=== PATIENT | male | born 1970 | race Hispanic/Latino ===

== ENCOUNTER → 2017-04-25 | Outpatient (CLI) | payer OTHER ==
[~2017-04-25] MED LIST: AGM875T PO; BUTA1TAB55 PO; CYCL10TA9 PO; PRD50T PO; TRAM50TA2 PO
--- NOTE | 2017-04-25 12:09 | Diagnostic Imaging Report ---
PROCEDURE: CT head without contrast. INDICATION: Head injury with pain Comparison is made to study of 03/03/2013. CT HEAD: Multiple contiguous axial CT images of the head were obtained. FINDINGS: Ventricles and sulci are within normal limits for size. There is no intracranial hemorrhage identified. There is no abnormal mass effect or shift of midline structures. IMPRESSION: Unremarkable CT of the head. Dictated by: Dictated on workstation # [id number]
== END ==
LOC: RAD 11:39
PROVIDERS: ATTEND Nurse Practitioner Family
DX: S06.0X0A Concussion without loss of consciousness, initial encounter (principal); X58.XXXA Exposure to other specified factors, initial encounter; Y99.8 Other external cause status
CPT/HCPCS: 70450

== ENCOUNTER → 2018-09-14 | Emergency (ER) | payer OTHER | LOC: ER 14:28 ==

== ENCOUNTER 2019-01-16 14:06 | Emergency (ER) | payer OTHER ==
[~2019-01-16] VITALS: Ht 165.1 cm; Wt 74.8 kg
[~2019-01-16 14:06] MED LIST changes: +PRD20T PO
--- OUTSIDE RECORDS SUMMARY | 2019-01-16 14:11 | XMS REPORT | Continuity of Care Document ---
Author Organization Unknown Address Unknown Allergies Active Description Code Type Severity Reaction Onset Reported/Identified Relationship to Patient Clinical Status Yes OTC PAIN MEDICATIONS OTC PAIN MEDICATIONS Mild N/A 03/30/2009 Yes acetaminophen [id number] Drug Allergy Severe EDEMA 09/14/2018 Medications There is no data. Problems Date Dx Coded Attending Type Code Diagnosis Diagnosed By 03/04/2013 EDUARDO ZHANG, ELSY Benítez Ot 784.0 HEADACHE 11/22/2017 ORTIZ MARTINEZ APRN Ot S06.0X0A CONCUSSION WITHOUT LOSS OF CONSCIOUSNESS 11/22/2017 ORTIZ MARTINEZ APRN Ot X58.XXXA EXPOSURE TO OTHER SPECIFIED FACTORS, INI 11/22/2017 ORTIZ MARTINEZ CHRONIC CARE NURSE Ot Y99.8 OTHER EXTERNAL CAUSE STATUS 11/22/2017 ORTIZ MARTINEZ CHRONIC CARE NURSE Ot S06.0X0A CONCUSSION WITHOUT LOSS OF CONSCIOUSNESS 11/22/2017 ORTIZ MARTINEZ APRN Ot X58.XXXA EXPOSURE TO OTHER SPECIFIED FACTORS, INI 11/22/2017 ORTIZ MARTINEZ CHRONIC CARE NURSE Ot Y99.8 OTHER EXTERNAL CAUSE STATUS 09/14/2018 ORTIZ MARTINEZ APRN Ot S06.0X0A CONCUSSION WITHOUT LOSS OF CONSCIOUSNESS 09/14/2018 ORTIZ MARTINEZ APRN Ot X58.XXXA EXPOSURE TO OTHER SPECIFIED FACTORS, INI 09/14/2018 ORTIZ MARTINEZ CHRONIC CARE NURSE Ot Y99.8 OTHER EXTERNAL CAUSE STATUS 09/14/2018 MELY KAMARA Ot G89.28 OTHER CHRONIC POSTPROCEDURAL PAIN 09/14/2018 MELY KAMARA Ot M54.6 PAIN IN THORACIC SPINE 09/14/2018 MELY KAMARA Ot Z79.52 SANDSTONE SPLITTER (CURRENT) USE OF SYSTEMIC STER 09/14/2018 MELY KAMARA Ot Z88.6 ALLERGY STATUS TO ANALGESIC AGENT STATUS 09/14/2018 ORTIZ MARTINEZ APRN Ot S06.0X0A CONCUSSION WITHOUT LOSS OF CONSCIOUSNESS 09/14/2018 ORTIZ MARTINEZ APRN Ot X58.XXXA EXPOSURE TO OTHER SPECIFIED FACTORS, INI 09/14/2018 JUAN ORTIZ Child APRN Ot Y99.8 OTHER EXTERNAL CAUSE STATUS 09/16/2018 MELY KAMARA Ot G89.28 OTHER CHRONIC POSTPROCEDURAL PAIN 09/16/2018 MELY KAMARA Ot M54.6 PAIN IN THORACIC SPINE 09/16/2018 BERNSPARKLE CABRERAIS Ot Z79.52 HALF-WAY (CURRENT) USE OF SYSTEMIC STER 09/16/2018 SPARKLE KAMARAIS Ot Z88.6 ALLERGY STATUS TO ANALGESIC AGENT STATUS 09/21/2018 BERNSPARKLE CABRERAIS Ot G89.28 OTHER CHRONIC POSTPROCEDURAL PAIN 09/21/2018 BERNOTMELY Ot M54.6 PAIN IN THORACIC SPINE 09/21/2018 BERNOTSPARKLEIS Ot Z79.52 SANDSTONE SPLITTER (CURRENT) USE OF SYSTEMIC STER 09/21/2018 BERNSPARKLE CABRERAIS Ot Z88.6 ALLERGY STATUS TO ANALGESIC AGENT STATUS Procedures There is no data. Results There is no data. Encounters ACCT No. Visit Date/Time Discharge Status Pt. Type Provider Facility Loc./Unit Complaint [id number] 09/14/2018 14:28:00 09/14/2018 15:18:00 DIS Emergency ASAD MELY [facility] ER L SIDE NUMBNESS/BACK PAIN [id number] 04/25/2017 11:39:00 04/25/2017 23:59:59 CLS Outpatient ORTIZ MARTINEZ APRN [facility] RAD CONCUSSION, HEAD TRAUMA [id number] 03/03/2013 22:52:00 03/04/2013 00:02:00 DIS Emergency ELSY CLARK MD [facility] ER HEADACHE,VOMITING
[2019-01-16] MEDS ORDERED: morphine INJ 10 MG/ML 1ML (SYR OR VIAL) IM STA (14:26)
[2019-01-16] MEDS ORDERED: ONDANSETRON 4 MG (ZOFRAN) ORAL DISSOLVE TAB SL ONE (14:30)
[2019-01-16] MEDS ORDERED: CYCLOBENZAPRINE 10 MG (FLEXERIL) TAB PO ONE (14:30)
[2019-01-16] MEDS ORDERED: PRD20T PO (14:36)
[2019-01-16] MEDS ORDERED: CYCL10TA9 PO (14:36)
[2019-01-16] MEDS ORDERED: OXYC-473 PO (14:36)
--- NOTE | 2019-01-16 14:41 | ED Back Pain ---
General Chief Complaint: Back Problems Stated Complaint: BACK PAIN Nursing Triage Note: pt states 1.5 years ago he had a 400 pound frame fall onto his back, states he comes to ED today because he can not take the pain anymore, denies being prescribed and pain medication but only anti-imflammatories Nursing Sepsis Screen: No Definite Risk Source of Information: Patient Exam Limitations: No Limitations History of Present Illness Date Seen by Provider: January 16, 2019 Time Seen by Provider: 14:14 Initial Comments This 48-year-old gentleman presents to the emergency room with complaints of exacerbation of chronic neck and back pain. He has pain related to a workplace injury about 18 months ago. He reports a 400 pound metal frame loaded with meat fell and struck him on the back. Since then he has had weakness of the left upper and lower extremities. That weakness persists and is perhaps a little worse in the arm today. He has had some long-standing problems with dribbling small amounts of urine. He also had urinated some in his pants a few nights ago. He otherwise denies any bowel or bladder dysfunction. He states he cannot take bbbd-mnd-mqujwqj medications and that both Tylenol and ibuprofen cause swelling. He can take aspirin. He reports being assessed by a clinical appeals specialist at [address] MRI of the spine was performed and he reports there were 7 bulging disks. He states the surgeon told him no interventions could be performed to help him. Therapy was recommended. He is not presently seeing a primary care provider and nobody is managing his chronic pain. He states the pain worsened about 2 or 3 days ago and he cannot tolerate it anymore. Patient states that his pain is so intense that it makes him dizzy and nauseated. Allergies and Home Medications Allergies Coded Allergies: acetaminophen (Verified Allergy, Severe, EDEMA, 09/14/18) ibuprofen (Verified Allergy, Unknown, 01/16/19) Swelling Home Medications Butalb/Acetaminophen/Caffeine 1 Each Tablet, 1 EACH PO Q4HR PRN Prescribed by: ELSY CLARK on 03/03/13 2352 Cyclobenzaprine HCl 10 Mg Tablet, 10 MG PO Q8H PRN for SPASMS Prescribed by: MELY KAMARA on 09/14/18 1512 Cyclobenzaprine HCl 10 Mg Tablet, 10 MG PO Q8H PRN for SPASMS Prescribed by: BRIJESH ORTEGA on 01/16/19 1436 Oxycodone HCl 5 Mg Tablet, 5 MG PO Q6H PRN for PAIN-MODERATE TO SEVERE Prescribed by: BRIJESH ORTEGA on 01/16/19 1436 Prednisone 20 Mg Tab, 40 MG PO DAILY Prescribed by: MELY KAMARA on 09/14/18 1512 Prednisone 20 Mg Tab, 40 MG PO DAILY Prescribed by: BRIJESH ORTEGA on 01/16/19 1436 Patient Home Medication List Home Medication List Reviewed: Yes Review of Systems Constitutional: no symptoms reported EENTM: no symptoms reported Respiratory: no symptoms reported Cardiovascular: no symptoms reported Gastrointestinal: no symptoms reported Genitourinary: no symptoms reported Musculoskeletal: see HPI Skin: no symptoms reported Psychiatric/Neurological: See HPI Past Luafaad-Biioox-Cpbrjy Hx Past Med/Social Hx: Reviewed and Corrections made Patient Social History Alcohol Use: Denies Use Recreational Drug Use: No Recent Foreign Travel: No Contact w/Someone Who Travel: No Recent Infectious Disease Expo: No Seasonal Allergies Seasonal Allergies: No Past Medical History Surgeries: No Respiratory: No Cardiac: No Neurological: Yes (chronic left-sided upper and lower extremity weakness.) Reproductive Disorders: No Sexually Transmitted Disease: No Genitourinary: No Gastrointestinal: No Musculoskeletal: Yes Chronic Back Pain Endocrine: No HEENT: No Cancer: No Psychosocial: No Integumentary: No Blood Disorders: No Physical Exam Vital Signs Vital Signs - First Documented 01/16/19 01/16/19 14:16 15:02 Temp 97.6 Pulse 81 Resp 20 B/P (MAP) 161/128 (139) Pulse Ox 99 O2 Delivery Room Air Capillary Refill : Less Than 3 Seconds Height, Weight, BMI Height: 5'5.00" Weight: 165lbs. oz. 74.264798ho; BMI Method:Stated General Appearance: WD/WN, Mild Distress HEENT: PERRL/EOMI, Normal ENT Inspection Neck: Normal Inspection Cardiovascular: Regular Rate, Rhythm, No Edema, No Murmur Respiratory: Lungs Clear, Normal Breath Sounds, No Accessory Muscle Use, No Respiratory Distress Gastrointestinal: Non Tender, Soft Back: Normal Inspection, Vertebral Tenderness (throughout the spine, more intense over the lumbar spine), Other (paraspinous muscles are very tense and tender) Extremity: Normal Inspection, No Pedal Edema Neurologic/Psychiatric: Alert, Oriented x3, Normal Mood/Affect, menhaden vessel pilot II-XII Norm as Tested, Motor Weakness (4/5 strength in the left upper and lower extremity) Skin: Normal Color, Warm/Dry Progress/Results/Core Measures Results/Orders My Orders Orders - BRIJESH CABRERA MD Morphine Injection (Morphine Injection (01/16/19 14:26) Cyclobenzaprine Tablet (Flexeril Tablet) (01/16/19 14:30) Ondansetron Oral Dissolve Tab (Zofran (01/16/19 14:30) Medications Given in ED Current Medications Medications Dose Ordered Sig/Suzie Route Start Time Stop Time Status Last Admin Dose Admin Cyclobenzaprine HCl 10 mg ONCE ONCE PO 01/16/19 14:30 01/16/19 14:31 DC 01/16/19 14:33 10 MG Ondansetron HCl 8 mg ONCE ONCE SL 01/16/19 14:30 01/16/19 14:31 DC 01/16/19 14:33 8 MG Vital Signs/I&O 01/16/19 01/16/19 14:16 15:02 Temp 97.6 97.8 Pulse 81 77 Resp 20 20 B/P (MAP) 161/128 (139) 145/101 (116) Pulse Ox 99 O2 Delivery Room Air Blood Pressure Mean: 139 Progress Progress Note : Progress Note Patient received an injection of morphine. He was given Zofran for nausea followed by cyclobenzaprine. I strongly advised him to follow-up with a primary care provider to manage his pain and to notify the clinical appeals specialist that his symptoms have worsened in intensity. Return precautions were discussed. See discharge instructions. A note was provided for several days off of work to allow him time to connect with a primary care provider. Departure Impression Primary Impression: Exacerbation of chronic back pain Additional Impression: Acute left-sided weakness Disposition: 01 HOME, SELF-CARE Condition: Improved Departure-Patient Inst. Decision time for Depature: 14:37 Referrals: NO,LOCAL PHYSICIAN (PCP/Family) Primary Care Physician Patient Instructions: MANAGING YOUR CHRONIC PAIN Add. Discharge Instructions: Follow-up with a primary care provider soon as possible to help manage your chronic pain. Also follow up with the clinical appeals specialist to assess your worsening of pain. Use your medications as prescribed. Please note the cyclobenzaprine and oxycodone may make you sleepy. Do not drive or operate machinery on these medications. It may be massey to take a stool softener such as Colace while you take oxycodone. Oxycodone may cause constipation. Return to emergency room for worsening symptoms, especially if you develop worsening weakness or more difficulty controlling your bowels or your bladder. All discharge instructions reviewed with patient and/or family. Voiced understanding. Scripts Prednisone (Prednisone) 20 Mg Tab 40 MG PO DAILY, #8 TAB 0 Refills Prov: BRIJESH CABRERA MD 01/16/19 Oxycodone HCl (Roxicodone) 5 Mg Tablet 5 MG PO Q6H PRN for PAIN-MODERATE TO SEVERE, #10 TAB Prov: RBIJESH CABRERA MD 01/16/19 Cyclobenzaprine HCl (Cyclobenzaprine HCl) 10 Mg Tablet 10 MG PO Q8H PRN for SPASMS, #15 TAB 0 Refills Prov: BRIJESH CABRERA MD 01/16/19 Work/School Note: Work Release Form Date Seen in the Emergency Department: January 16, 2019 Return to Work: January 21, 2019 Other Restrictions Listed Below: Gradually increase level of activity and work as pain allows. Copy Copies To 1: BENITO MARIN JOSHUA T MD January 16, 2019 14:41
[2019-01-16 15:02] VITALS: BP 145/101
== END 2019-01-16 15:03 | disposition home or self-care (01) ==
LOC: EDUNIT# 14:06 → ER 14:07
DX: M54.2 Cervicalgia (principal); M54.5 Low back pain; G89.29 Other chronic pain; M62.81 Muscle weakness (generalized); Z88.6 Allergy status to analgesic agent; Z79.52 Long term (current) use of systemic steroids
CPT/HCPCS: 96372; 99284

== ENCOUNTER 2019-11-26 11:12 | Emergency (ER) | payer BC, OTHER ==
[~2019-11-26] VITALS: Ht 165.1 cm; Wt 75.0 kg
[~2019-11-26 11:12] MED LIST changes: +OXYC-473 PO
[2019-11-26] MEDS ORDERED: NS IV 1000 ML 1,000 ML IV SCH (12:00)
[2019-11-26] MEDS ORDERED: fentaNYL INJECTION 100 MCG/2 ML AMP IVP ONE (12:00)
[2019-11-26] MEDS ORDERED: methylPREDNISolone 40 MG/ML (Solu-MEDROL) VIAL IV ONE (12:00)
[2019-11-26 12:06] LABS: BASOPHILS % (AUTO) 0 % (0-10); EOSINOPHILS # (AUTO) 0.1 10^3/uL (0.0-0.3); EOSINOPHILS % (AUTO) 1 % (0-10); HEMATOCRIT 43 % (40-54); HEMOGLOBIN 14.1 G/DL (13.3-17.7); LYMPHOCYTES # (AUTO) 1.2 X 10^3 (1.0-4.0); LYMPHOCYTES % (AUTO) 16 % (12-44); MEAN CORPUSCULAR HEMOGLOBIN 30 PG (25-34); MEAN CORPUSCULAR HGB CONC 33 G/DL (32-36); MEAN CORPUSCULAR VOLUME 91 FL (80-99); MEAN PLATELET VOLUME 10.5 FL (7.4-10.4); MONOCYTES # (AUTO) 0.6 X 10^3 (0.0-1.0); MONOCYTES % (AUTO) 8 % (0-12); NEUTROPHILS # (AUTO) 5.8 X 10^3 (1.8-7.8); NEUTROPHILS % (AUTO) 75 % (42-75); PLATELET COUNT 263 10^3/uL (130-400); RED CELL DISTRIBUTION WIDTH 12.9 % (10.0-14.5); WHITE BLOOD COUNT 7.7 10^3/uL (4.3-11.0)
--- NOTE | 2019-11-26 12:06 | ED General ---
General Chief Complaint: General Problems/Pain Stated Complaint: JOINT PAIN Nursing Triage Note: Pt amb to triage with c/o joint discomfort et swelling. Pt reports onset of symptoms to be approx x2 months ago. Pt reports cold chills with low grade fever of 37.5. Pt reports he was advised by [facility] to seek further evaluation et tx at this ED. Nursing Sepsis Screen: Possible Severe Sepsis Risk Source of Information: Patient Exam Limitations: No Limitations History of Present Illness Date Seen by Provider: Nov 26, 2019 Time Seen by Provider: 12:03 Initial Comments To ER by private vehicle with reports of bilateral ankle knee and wrist pain. This been ongoing for about 2 months, he saw [facility] of the onset of this, had labs drawn and was told it was all okay but arthritis was suspected. They gave him steroids for one week then Celebrex. The Celebrex was not helpful, the steroids were very helpful however. Denies fevers but does report chills. Timing/Duration: 1-2 Days Severity: Moderate Associated Systoms: Fever/Chills Allergies and Home Medications Allergies Coded Allergies: acetaminophen (Verified Allergy, Severe, EDEMA, 09/14/18) ibuprofen (Verified Allergy, Unknown, 01/16/19) Swelling Home Medications Butalb/Acetaminophen/Caffeine 1 Each Tablet, 1 EACH PO Q4HR PRN Prescribed by: ELSY CLARK on 03/03/13 2352 Cyclobenzaprine HCl 10 Mg Tablet, 10 MG PO Q8H PRN for SPASMS Prescribed by: MELY KAMARA on 09/14/18 1512 Cyclobenzaprine HCl 10 Mg Tablet, 10 MG PO Q8H PRN for SPASMS Prescribed by: BRIJESH ORTEGA on 01/16/19 1436 Oxycodone HCl 5 Mg Tablet, 5 MG PO Q6H PRN for PAIN-MODERATE TO SEVERE Prescribed by: BRIJESH ORTEGA on 01/16/19 1436 Prednisone 20 Mg Tab, 40 MG PO DAILY Prescribed by: MELY KAMARA on 09/14/18 1512 Prednisone 20 Mg Tab, 40 MG PO DAILY Prescribed by: BRIJESH ORTEGA on 01/16/19 1436 Patient Home Medication List Home Medication List Reviewed: Yes Review of Systems Review of Systems Constitutional: see HPI, chills; No fever EENTM: see HPI Respiratory: no symptoms reported Cardiovascular: no symptoms reported Genitourinary: no symptoms reported Musculoskeletal: see HPI, joint pain Skin: no symptoms reported Psychiatric/Neurological: No Symptoms Reported Hematologic/Lymphatic: No Symptoms Reported Immunological/Allergic: no symptoms reported Past Tkkqumq-Lqicwh-Sdeonb Hx Patient Social History Alcohol Use: Denies Use Recreational Drug Use: No Smoking Status: Never a Smoker Recent Foreign Travel: No Contact w/Someone Who Travel: No Recent Infectious Disease Expo: No Seasonal Allergies Seasonal Allergies: No Past Medical History Surgeries: No Respiratory: No Cardiac: No Neurological: Yes (chronic left-sided upper and lower extremity weakness.) Reproductive Disorders: No Sexually Transmitted Disease: No Genitourinary: No Gastrointestinal: No Musculoskeletal: Yes Chronic Back Pain Endocrine: No HEENT: No Cancer: No Psychosocial: No Integumentary: No Blood Disorders: No Physical Exam Vital Signs Vital Signs - First Documented 11/26/19 11:26 Temp 37.5 Pulse 106 Resp 18 B/P (MAP) 160/95 (116) Pulse Ox 98 O2 Delivery Room Air Capillary Refill : Less Than 3 Seconds Height, Weight, BMI Height: 5'5.00" Weight: 165lbs. oz. 74.595570bo; 27.00 BMI Method:Stated General Appearance: No Apparent Distress, WD/WN, Other (does appear uncomfortable) Eyes: Bilateral Eye Normal Inspection, Bilateral Eye PERRL, Bilateral Eye EOMI HEENT: PERRL/EOMI, TMs Normal Neck: Full Range of Motion, Normal Inspection Respiratory: No Accessory Muscle Use, No Respiratory Distress Gastrointestinal: Normal Bowel Sounds, Non Tender, Soft Extremity: Normal Capillary Refill, Normal Inspection, Other (there is swelling to both ankles, right greater than left and the right ankle is currently is most painful joint, there is some swelling to both wrists as well. There is no obvious effusion in either knee.) Neurologic/Psychiatric: Alert, Oriented x3 Skin: Normal Color, Warm/Dry Progress/Results/Core Measures Suspected Sepsis Recent Fever Within 48 Hours: Yes Infection Criteria Present: Suspected New Infection New/Unexplained Altered Menta: No Sepsis Screen: Possible Severe Sepsis Risk SIRS Temperature: Pulse: 106 Respiratory Rate: 18 Laboratory Tests 11/26/19 11:48: White Blood Count 7.7 Blood Pressure 160 /95 Mean: 116 Laboratory Tests 11/26/19 11:48: Creatinine 1.05, Platelet Count 263, Total Bilirubin 0.7 Results/Orders Lab Results Laboratory Tests Test 11/26/19 11:45 11/26/19 11:48 Range/Units White Blood Count 7.7 4.3-11.0 10^3/uL Red Blood Count 4.70 4.35-5.85 10^6/uL Hemoglobin 14.1 13.3-17.7 G/DL Hematocrit 43 40-54 % Mean Corpuscular Volume 91 80-99 FL Mean Corpuscular Hemoglobin 30 25-34 PG Mean Corpuscular Hemoglobin Concent 33 32-36 G/DL Red Cell Distribution Width 12.9 10.0-14.5 % Platelet Count 263 130-400 10^3/uL Mean Platelet Volume 10.5 H 7.4-10.4 FL Neutrophils (%) (Auto) 75 42-75 % Lymphocytes (%) (Auto) 16 12-44 % Monocytes (%) (Auto) 8 0-12 % Eosinophils (%) (Auto) 1 0-10 % Basophils (%) (Auto) 0 0-10 % Neutrophils # (Auto) 5.8 1.8-7.8 X 10^3 Lymphocytes # (Auto) 1.2 1.0-4.0 X 10^3 Monocytes # (Auto) 0.6 0.0-1.0 X 10^3 Eosinophils # (Auto) 0.1 0.0-0.3 10^3/uL Basophils # (Auto) 0.0 0.0-0.1 10^3/uL Sodium Level 139 135-145 MMOL/L Potassium Level 3.9 3.6-5.0 MMOL/L Chloride Level 105 98-107 MMOL/L Carbon Dioxide Level 26 21-32 MMOL/L Anion Gap 8 5-14 MMOL/L Blood Urea Nitrogen 8 7-18 MG/DL Creatinine 1.05 0.60-1.30 MG/DL Estimat Glomerular Filtration Rate > 60 BUN/Creatinine Ratio 8 Glucose Level 134 H 70-105 MG/DL Calcium Level 9.3 8.5-10.1 MG/DL Corrected Calcium 9.1 8.5-10.1 MG/DL Total Bilirubin 0.7 0.1-1.0 MG/DL Aspartate Amino Transf (AST/SGOT) 21 5-34 U/L Alanine Aminotransferase (ALT/SGPT) 19 0-55 U/L Alkaline Phosphatase 64 40-136 U/L C-Reactive Protein High Sensitivity 6.28 H 0.00-0.50 MG/DL Total Protein 7.7 6.4-8.2 GM/DL Albumin 4.2 3.2-4.5 GM/DL My Orders Orders - LÁZARO IQBAL COSTUME DRAPER Cbc With Automated Diff (11/26/19 11:48) Comprehensive Metabolic Panel (11/26/19 11:48) Erythrocyte Sedimentation Rate (11/26/19 11:48) Hs C Reactive Protein (11/26/19 11:48) Ed Iv/Invasive Line Start (11/26/19 11:48) Ns Iv 1000 Ml (Sodium Chloride 0.9%) (11/26/19 12:00) Fentanyl Injection (Sublimaze Injection (11/26/19 12:00) Methylprednisolone Sod Succ (Solu-Medrol (11/26/19 12:00) Ra Factor (Rheumatoid Factor) (11/26/19 12:02) Anti-Nuclear Ab (Janeth) Analyzer (11/26/19 12:26) Medications Given in ED Current Medications Medications Dose Ordered Sig/Suzie Route Start Time Stop Time Status Last Admin Dose Admin Fentanyl Citrate 50 mcg ONCE ONCE IVP 11/26/19 12:00 11/26/19 12:01 DC 11/26/19 12:13 50 MCG Methylprednisolone Sodium Succinate 80 mg ONCE ONCE IV 11/26/19 12:00 11/26/19 12:01 DC 11/26/19 12:17 80 MG Vital Signs/I&O 11/26/19 11:26 Temp 37.5 Pulse 106 Resp 18 B/P (MAP) 160/95 (116) Pulse Ox 98 O2 Delivery Room Air Capillary Refill : Less Than 3 Seconds Blood Pressure Mean: 116 Departure Impression Primary Impression: Polyarthritis Disposition: HOME, SELF-CARE Condition: Stable Departure-Patient Inst. Decision time for Depature: 12:44 Referrals: NO,LOCAL PHYSICIAN (PCP/Family) Primary Care Physician Patient Instructions: Rheumatoid Arthritis (DC) Add. Discharge Instructions: 1. Return to ER for any concerns 2. Follow-up with your doctor next week 3. All discharge instructions reviewed with patient and/or family. Voiced understanding. Scripts Methylprednisolone (Medrol) 4 Mg Tab.ds.pk 4 MG PO UD for 6 Days, #21 PKG PER DOSE PACK INSTRUCTIONS Prov: LÁZARO IQBAL APRN 11/26/19 Work/School Note: Work Release Form Date Seen in the Emergency Department: Nov 26, 2019 Return to Work: Nov 29, 2019 LÁZARO IQBAL APRN Nov 26, 2019 12:05
[2019-11-26 12:23] LABS: ALANINE AMINOTRANSFERASE 19 U/L (0-55); ALBUMIN 4.2 GM/DL (3.2-4.5); ALKALINE PHOSPHATASE 64 U/L (40-136); BILIRUBIN,TOTAL 0.7 MG/DL (0.1-1.0); BUN/CREATININE RATIO 8; CALCIUM 9.3 MG/DL (8.5-10.1); CARBON DIOXIDE 26 MMOL/L (21-32); CHLORIDE 105 MMOL/L (98-107); CREATININE SERUM 1.05 MG/DL (0.60-1.30); GFR ESTIMATED > 60; GLUCOSE 134 MG/DL (70-105); POTASSIUM 3.9 MMOL/L (3.6-5.0); SODIUM 139 MMOL/L (135-145); TOTAL PROTEIN 7.7 GM/DL (6.4-8.2)
[2019-11-26] MEDS ORDERED: METH4TAB PO (12:47)
[2019-11-26] MEDS ORDERED: OXYC-529 PO (12:47)
[2019-11-26 12:57] LABS: ERYTHROCYTE SEDIMENTATION RATE 43 MM/HR (0-15)
[2019-11-26 13:08] VITALS: BP 129/85
--- OUTSIDE RECORDS SUMMARY | 2019-11-26 13:35 | XMS REPORT | Continuity of Care Document ---
Author Organization Unknown Address Unknown Phone Unavailable Allergies Active Description Code Type Severity Reaction Onset Reported/Identified Relationship to Patient Clinical Status Yes OTC PAIN MEDICATIONS OTC PAIN MEDICATI ONS Mild N/A 03/30/2009 Yes acetaminophen [id number] Cholo g Allergy Severe EDEMA 09/14/2018 Yes ibuprofen [id number] Drug Allergy Unknown N/A 01/16/2019 Medications There is no data. Problems Date Dx Coded Attending Type Code Diagnosis Diagnosed By 03/04/2013 ELSY CLARK MD Ot 784. 0 HEADACHE 11/22/2017 ORTIZ MARTINEZ APRN Ot S06.0X0A CONCUSSION WITHOUT LOSS OF CONSCIOUSNESS 11/22/2017 ORTIZ MARTINEZ APRN Ot X58.XXXA EXPOSURE TO OTHER SPECIFIED FACTORS, INI 11/22/2017 ORTIZ MARTINEZ PUBLISHING EDITOR Ot Y99.8 OTHER EXTERNAL CAUSE STATUS 11/22/2017 ORTIZ MARTINEZ APRN Ot S06.0X0A CONCUSSION WITHOUT LOSS OF CONSCIOUSNESS 11/22/2017 ORTIZ MARTINEZ APRN Ot X58.XXXA EXPOSURE TO OTHER SPECIFIED FACTORS, INI 11/22/2017 ORTIZ MARTINEZ APRN Ot Y99.8 OTHER EXTERNAL CAUSE STATUS 09/14/2018 ORTIZ MARTINEZ APRN Ot S06.0X0A CONCUSSION WITHOUT LOSS OF CONSCIOUSNESS 09/14/2018 ORTIZ MARTINEZ APRN Ot X58.XXXA EXPOSURE TO OTHER SPECIFIED FACTORS, INI 09/14/2018 ORTIZ MARTINEZ APRN Ot Y99.8 OTHER EXTERNAL CAUSE STATUS 09/14/2018 MELY KAMARA Ot G89.28 OTHER CHRONIC POSTPROCEDURAL PAIN 09/14/2018 MELY KAMARA Ot M54.6 PAIN IN THORACIC SPINE 09/14/2018 MELY KAMARA Ot Z79.52 SNF (CURRENT) USE OF SYSTEMIC STER 09/14/2018 MELY KAMARA Ot Z88.6 ALLERGY STATUS TO ANALGESIC AGENT STATUS 09/14/2018 ORTIZ MARTINEZ APRN Ot S06.0X0A CONCUSSION WITHOUT LOSS OF CONSCIOUSNESS 09/14/2018 ORTIZ MARTINEZ PUBLISHING EDITOR Ot X58.XXXA EXPOSURE TO OTHER SPECIFIED FACTORS, INI 09/14/2018 ORTIZ MARTINEZ PUBLISHING EDITOR Ot Y99.8 OTHER EXTERNAL CAUSE STATUS 09/16/2018 BERNOT, MELY Ot G89.28 OTHER CHRONIC POSTPROCEDURAL PAIN 09/16/2018 BERNOT, MELY Ot M54.6 PAIN IN THORACIC SPINE 09/16/2018 BERNOT, MELY Ot Z79.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 SYSTEMIC STER 09/16/2018 BERNOT, MELY Ot Z88.6 ALLERGY STATUS TO ANALGESIC AGENT STATUS 09/21/2018 BERNOT, MELY Ot G89.28 OTHER CHRONIC POSTPROCEDURAL PAIN 09/21/2018 BERNOT, MELY Ot M54.6 PAIN IN THORACIC SPINE 09/21/2018 BERNOT, MELY Ot Z79.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 SYSTEMIC STER 09/21/2018 BERNOT, MELY Ot Z88.6 ALLERGY STATUS TO ANALGESIC AGENT STATUS 01/16/2019 RICK ZHANG, BRIJESH T Ot G89.29 OTHER CHRONIC PAIN 01/16/2019 BRIJESH CABRERA MD T Ot M54.2 CERVICALGIA 01/16/2019 BRIJESH CABRERA MD T Ot M54.5 LOW BACK PAIN 01/16/2019 BRIJESH CABRERA MD T Ot M62.81 MUSCLE WEAKNESS (GENERALIZED) 01/16/2019 BRIJESH CABRERA MD T Ot Z79.52 SNF (CURRENT) USE OF SYSTEMIC STER 01/16/2019 BRIJESH CABRERA MD T Ot Z88.6 ALLERGY STATUS TO ANALGESIC AGENT STATUS 01/20/2019 BRIJESH CABRERA MD T Ot G89.29 OTHER CHRONIC PAIN 01/20/2019 BRIJESH CABRERA MD T Ot M54.2 CERVICALGIA 01/20/2019 BRIJESH CABRERA MD T Ot M54.5 LOW BACK PAIN 01/20/2019 BRIJESH CABRERA MD T Ot M62.81 MUSCLE WEAKNESS (GENERALIZED) 01/20/2019 BRIJESH CABRERA MD T Ot Z79.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 SYSTEMIC STER 01/20/2019 RICK ZHANG, BRIJESH T Ot Z88.6 ALLERGY STATUS TO ANALGESIC AGENT STATUS 10/08/2019 ORTIZ MARTINEZ PUBLISHING EDITOR Ot S06.0X0A CONCUSSION WITHOUT LOSS OF CONSCIOUSNESS 10/08/2019 ORTIZ MARTINEZ PUBLISHING EDITOR Ot X58.XXXA EXPOSURE TO OTHER SPECIFIED FACTORS, INI 10/08/2019 ORTIZ MARTINEZ PUBLISHING EDITOR Ot Y99.8 OTHER EXTERNAL CAUSE STATUS Procedures There is no data. Results Test Result Range URIC ACID, SERUM - 11/05/19 11:52 URIC ACID 6.0 mg/dL 4.0-8.0 CBC - 11/05/19 11:52 WHITE BLOOD CELL COUNT 9.4 Thousand/uL 3 .8-10.8 RED BLOOD CELL COUNT 4.90 Million/uL 4.2 0-5.80 HEMOGLOBIN 15.2 g/dL 13.2-17.1 HEMATOCRIT 44.6 % 38.5-50.0 MCV 91.0 fL 80.0-100.0 MCH 31.0 pg 27.0-33.0 MCHC 34.1 g/dL 32.0-36.0 RDW 12.3 % 11.0-15.0 PLATELET COUNT 251 Thousand/uL 140-400 MPV 10.6 fL 7.5-12.5 ABSOLUTE NEUTROPHILS 7464 cells/uL 1500- 7800 ABSOLUTE LYMPHOCYTES 1100 cells/uL 850-3 900 ABSOLUTE MONOCYTES 649 cells/uL 200-950 ABSOLUTE EOSINOPHILS 160 cells/uL 15-500 ABSOLUTE BASOPHILS 28 cells/uL 0-200 NEUTROPHILS 79.4 % NRG LYMPHOCYTES 11.7 % NRG MONOCYTES 6.9 % NRG EOSINOPHILS 1.7 % NRG BASOPHILS 0.3 % NRG ESR/SED RATE - 11/05/19 11:52 SED RATE BY MODIFIED WESTERGREN 22 mm/h < OR = 15 RA (RHEUMATOID) FACTOR - 11/05/19 11:52 RHEUMATOID FACTOR <14 IU/mL <14 Encounters ACCT No. Visit Date/Time Discharge Status Pt. Type Provider Facility Loc./Unit Complaint [id number] 11/10/2019 10:10:00 11/10/2019 23:59: 59 [facility] Outpatient LAINA BROOKS LAC [facility] [id number] 11/05/2019 10:50:00 Document Registration [id number] 01/16/2019 14:07:00 019 15:03:00 DIS Emergency RICK ZHANG, BRIJESH Gold [facility] ER BACK PAIN [id number] 09/14/2018 14:28:00 019 15:18:00 DIS Emergency MELY KAMARA [facility] ER L SIDE NUMBNESS/BACK PA IN [id number] 04/25/2017 11:39:00 017 23:59:59 CLS Outpatient ORTIZ MARTINEZ APRN [facility] RAD CONCUSSION, HEAD TRAUMA [id number] 03/03/2013 22:52:00 013 00:02:00 DIS Emergency EDUARDO ZHANG, ELSY Bneítez [facility] ER HEADACHE,VOMITING
== END 2019-11-26 13:08 | disposition home or self-care (01) ==
LOC: EDUNIT# 11:12 → ER 11:13
DX: M13.0 Polyarthritis, unspecified (principal); Z88.6 Allergy status to analgesic agent; Z79.52 Long term (current) use of systemic steroids
CPT/HCPCS: 36415; 80053; 85025; 85652; 86038; 86141; 86431